=== PATIENT | female | born 1960 | race Hispanic/Latino ===

== ENCOUNTER → 2019-05-04 | Outpatient (CLI) | payer OTHER | END | disposition home or self-care (01) | LOC: RAH 13:29 | PROVIDERS: ATTEND Internal Medicine | DX: Z12.31 Encounter for screening mammogram for malignant neoplasm of breast (principal) | CPT/HCPCS: 77067 ==

== ENCOUNTER 2019-06-29 07:04 | Day surgery (SDC) | payer OTHER ==
[~2019-06-29] VITALS: Ht 162.6 cm; Wt 117.9 kg
[~2019-06-29 07:04] MED LIST: ASPI-556 PO; CALC-268 PO; CLOP75TA14 PO; DAPA5TAB PO; GLIP-162 PO; LOSA1TAB42 PO; METF-891 PO; OMEP40CA13 PO; SODIUM CHLORIDE 0.9% 1000ML 1,000 ML IV ONE
[2019-06-29 08:10] VITALS: BP 143/65
[2019-06-29] MEDS ORDERED: ATOR40TA71 PO (08:49)
[2019-06-29] MEDS ORDERED: PROPOFOL 10 MG/ML 20ML VIAL IV ONE (09:11)
[2019-06-29 09:53] VITALS: BP 103/49
[2019-06-29 09:56] VITALS: BP 106/89
[2019-06-29 10:00] VITALS: BP 110/68
[2019-06-29 10:07] VITALS: BP 125/66
[2019-06-29 10:12] VITALS: BP 130/77
== END 2019-06-29 10:23 | disposition home or self-care (01) ==
LOC: ENDO 07:04 → DAH 07:04 → ENDO 10:23
PROVIDERS: ATTEND Internal Medicine Gastroenterology
DX: K59.04 Chronic idiopathic constipation (principal); D12.3 Benign neoplasm of transverse colon; K62.1 Rectal polyp; K29.50 Unspecified chronic gastritis without bleeding; K31.7 Polyp of stomach and duodenum; K29.80 Duodenitis without bleeding; R10.12 Left upper quadrant pain; E78.5 Hyperlipidemia, unspecified; I10 Essential (primary) hypertension; E11.9 Type 2 diabetes mellitus without complications; E66.9 Obesity, unspecified; Z86.73 Personal history of transient ischemic attack (TIA), and cerebral infarction without residual deficits; Z90.49 Acquired absence of other specified parts of digestive tract; Z79.82 Long term (current) use of aspirin; Z79.84 Long term (current) use of oral hypoglycemic drugs; Z86.010 Personal history of colon polyps; Z79.899 Other long term (current) drug therapy; Z98.890 Other specified postprocedural states; Z82.49 Family history of ischemic heart disease and other diseases of the circulatory system; Z83.3 Family history of diabetes mellitus
CPT/HCPCS: 43239; 43251; 45380; 45385; 82948 ×2; A4215; A4221; A4222; A4223; A4606; A4620; A4663; J2704; J7030

== ENCOUNTER → 2021-07-14 | Outpatient (CLI) | payer OTHER ==
[~2021-07-14] MED LIST changes: +ATOR40TA71 PO; -OMEP40CA13 PO; +OMEP40CA21 PO; -SODIUM CHLORIDE 0.9% 1000ML 1,000 ML IV ONE
== END | disposition home or self-care (01) ==
LOC: RAH 10:14
PROVIDERS: ATTEND Internal Medicine Gastroenterology
DX: R10.13 Epigastric pain (principal)
CPT/HCPCS: 78264; A9541

== ENCOUNTER 2021-07-23 13:33 | Emergency (ER) | payer OTHER ==
[~2021-07-23] VITALS: Ht 162.6 cm; Wt 117.9 kg
[2021-07-23 13:35] VITALS: BP 142/83
[2021-07-23] MEDS ORDERED: IOHEXOL 350 MG/ML 100ML INFUS..BTL IV ONE (13:47)
[2021-07-23] MEDS ORDERED: MORPHINE 4 MG SYG IVP ONE (14:00)
[2021-07-23] MEDS ORDERED: 0.9%NACL 1000ML 1,000 ML IV ONE (14:00)
[2021-07-23] MEDS ORDERED: ONDANSETRON 4MG INJ IVP ONE (14:00)
[2021-07-23] MEDS ORDERED: KETOROLAC 15MG/ML VIAL (15MG/ML) IV ONE (14:00)
[2021-07-23 14:08] LABS: BASOPHILS % (AUTO) 0.3 % (0.0-5.0); EOSINOPHILS % (AUTO) 0.5 % (0.0-8.0); HEMATOCRIT 35.8 % (36-48); LYMPHOCYTES % (AUTO) 15.8 % (21.0-51.0); MEAN CORPUSCULAR HEMOGLOBIN 30.6 pg (27.0-33.0); MEAN CORPUSCULAR HGB CONC 31.8 g/dL (32.0-36.0); MEAN CORPUSCULAR VOLUME 96.2 fL (79-99); MONOCYTES % (AUTO) 4.4 % (3.0-13.0); NEUTROPHILS % (AUTO) 78.3 % (40.0-77.0); PLATELET COUNT (AUTO) 237 K/uL (130-400); RED BLOOD CELL COUNT(AUTO) 3.72 MIL/uL (4.00-5.50); WHITE BLOOD COUNT (AUTO) 12.7 K/uL (4.8-10.8)
[2021-07-23 14:18] LABS: CREATININE 0.7 mg/dL (0.5-1.5); POTASSIUM 3.5 mmol/L (3.5-5.1)
[2021-07-23 14:28] LABS: ALBUMIN 3.3 g/dL (3.5-5.0); BILIRUBIN,TOTAL 0.3 mg/dL (0.2-1.0); TOTAL PROTEIN, SERUM 6.5 g/dL (6.0-8.3)
[2021-07-23] MEDS ORDERED: METH-662 PO (16:09)
== END 2021-07-23 17:22 | disposition home or self-care (01) ==
LOC: EDH 13:33
DX: S40.012A Contusion of left shoulder, initial encounter (principal); S20.212A Contusion of left front wall of thorax, initial encounter; S60.222A Contusion of left hand, initial encounter; Z79.02 Long term (current) use of antithrombotics/antiplatelets; Z79.1 Long term (current) use of non-steroidal anti-inflammatories (NSAID); Z79.82 Long term (current) use of aspirin; Z79.84 Long term (current) use of oral hypoglycemic drugs; Z79.899 Other long term (current) drug therapy; V49.49XA Driver injured in collision with other motor vehicles in traffic accident, initial encounter; Y93.89 Activity, other specified; Y92.89 Other specified places as the place of occurrence of the external cause; Y99.8 Other external cause status
CPT/HCPCS: 36415; 70450; 71260; 72125; 73030; 73130; 74177; 80053; 84484; 85025; 93005; 99285; Q9967; J1885; J2270; J2405; J7030

== ENCOUNTER → 2022-03-05 | Outpatient (CLI) | payer OTHER ==
[~2022-03-05] MED LIST changes: +CLOP-31 PO; -CLOP75TA14 PO; +METH-662 PO
== END | disposition home or self-care (01) ==
LOC: RAH 10:53
PROVIDERS: ATTEND Internal Medicine
DX: Z12.31 Encounter for screening mammogram for malignant neoplasm of breast (principal)
CPT/HCPCS: 77067

== ENCOUNTER → 2022-07-27 | Outpatient (CLI) | payer OTHER ==
[~2022-07-27] MED LIST changes: +GADOTERATE MEGLUMINE 10 MMOL/20 ML VIAL IV ONE
== END | disposition home or self-care (01) ==
LOC: CANSCHCLI → RAH 08:22
PROVIDERS: ATTEND Internal Medicine Gastroenterology
DX: R93.3 Abnormal findings on diagnostic imaging of other parts of digestive tract (principal); R16.0 Hepatomegaly, not elsewhere classified; N28.1 Cyst of kidney, acquired; Z90.49 Acquired absence of other specified parts of digestive tract
CPT/HCPCS: 74183; A9575

== ENCOUNTER → 2022-08-10 | Outpatient (CLI) | payer OTHER ==
[~2022-08-10] MED LIST changes: -GADOTERATE MEGLUMINE 10 MMOL/20 ML VIAL IV ONE
== END | disposition home or self-care (01) ==
LOC: SHCH 10:12
PROVIDERS: ATTEND Internal Medicine Cardiovascular Disease
DX: G45.9 Transient cerebral ischemic attack, unspecified (principal); I48.0 Paroxysmal atrial fibrillation
CPT/HCPCS: 93880

== ENCOUNTER → 2023-03-15 | Outpatient (CLI) | payer OTHER | END | disposition home or self-care (01) | LOC: RAH 09:52 | PROVIDERS: ATTEND Internal Medicine | DX: Z12.31 Encounter for screening mammogram for malignant neoplasm of breast (principal) | CPT/HCPCS: 77067 ==

== ENCOUNTER 2024-10-08 17:16 | Emergency (ER) | payer OTHER ==
[~2024-10-08] VITALS: Ht 162.6 cm; Wt 103.0 kg
[~2024-10-08 17:16] MED LIST changes: -GLIP-162 PO; +GLIP-300 PO; +METF-1151 PO; -METF-891 PO
--- NOTE | 2024-10-08 17:57 | ERN ---
ED Note History of Present Illness Stated Complaint: FRACTURED FIBULA Chief Complaint: Lower Extremity Pain/Injury Time Seen by MD: 17:43 Time Seen by Midlevel: 17:46 Dictation: Ms. Ramirez is a 64 year old female with history of heart disease, hypertension, hyperlipidemia, atrial fibrillation, chronic anticoagulation (on Eliquis), type II DM, and obesity who presented to the Emergency Department this evening for evaluation of leg pain. She states that approximately one month ago she was walking with some flat sandals which caused pronation. She states she had x-ray done that showed a fractured left fibula. She states she saw leasing property manager, Dr. Odom, who wrapped her foot and ankle and referred her to orthopedic surgeon. She states that she has an appointment with Dr. Wilmer Morfin on 10/17. She states the pain has worsened and is having difficulty walking. She denies fall/additional trauma. Allergies: Coded Allergies: No Known Drug Allergies (Unverified Allergy, Unknown, 06/07/19) codeine (Unverified Allergy, Unknown, 10/08/24) Home Meds Active Scripts Ketorolac Tromethamine (Toradol) 10 Mg Tab, 1 TAB PO Q6HPRN PRN for pain for 5 Days, #20 TAB 0 Refills Prov:DENNIS CARRILLO NP 10/08/24 Methocarbamol (Robaxin) 750 Mg Tab, 1-2 TAB PO TIDP PRN for MUSCLE SPASMS, #20 TAB 0 Refills Prov:CRESCENCIO TURPIN MD 07/23/21 Reported Medications Atorvastatin Calcium (Atorvastatin Calcium) 40 Mg Tablet, 40 MG PO DAILY, TAB 06/29/19 Calcium Carbonate/Vitamin D3 (Calcium 600 + Vit D Tablet) 1 Each Tablet, 1 EACH PO BID, TAB 06/07/19 Omeprazole (Omeprazole) 40 Mg Capsule.dr, 40 MG PO DAILY, CAP 06/07/19 Aspirin (Aspir 81) 81 Mg Tablet.dr, 81 MG PO PM, TAB 06/07/19 Clopidogrel Bisulfate (Plavix) 75 Mg Tablet, 75 MG PO PM, TAB 06/07/19 Losartan/Hydrochlorothiazide (Losartan-Hctz 100-12.5 mg Tab) 1 Each Tablet, 1 EACH PO DAILY, TAB 06/07/19 Glipizide (Glipizide ER) 5 Mg Tab.er.24, 5 MG PO BID 06/07/19 Dapagliflozin Propanediol (Farxiga) 5 Mg Tablet, 5 MG PO BID, TAB 06/07/19 Metformin HCl (Metformin HCl ER) 1,000 Mg Esfreoe12c, 1000 MG PO BID 06/07/19 Past Medical History Past Medical History: A-Fib, Diabetes-Type II, High Cholesterol, Heart Disease, Hypertension Surgical History: Cholecystectomy, PSYCH History: no pertinent psych hx Social History: Negative, Lives with family, Other History: Not Applicable RN Note Reviewed/Agreed w/PFSH: Yes Review of System Dictation REVIEW OF SYSTEMS: CONSTITUTIONAL: Patient denies fevers, chills, sweats and weight changes. EYES: Patient denies any visual symptoms. EARS, NOSE, AND THROAT: No difficulties with hearing. No symptoms of rhinitis or sore throat. CARDIOVASCULAR: Patient denies chest pains, palpitations, orthopnea and paroxysmal nocturnal dyspnea. Reports elevated blood pressure reading. RESPIRATORY: No dyspnea on exertion, no wheezing or cough. GI: No nausea, vomiting, diarrhea, constipation, abdominal pain, hematochezia or melena. : No urinary hesitancy or dribbling. No nocturia or urinary frequency. No abnormal urethral discharge. MUSCULOSKELETAL: Reports pain left lower leg. States she was diagnosed with a fracture of the left fibula one month ago. NEUROLOGIC: No chronic headaches, no seizures. Patient denies numbness, tingling or weakness. PSYCHIATRIC: Patient denies problems with mood disturbance. Reports anxiety. ENDOCRINE: No excessive urination or excessive thirst. DERMATOLOGIC: Patient denies any rashes or skin changes. Initial Vital Sign VS Vital Signs Date Time Temp Pulse Resp B/P (MAP) Pulse Ox O2 Delivery O2 Flow Rate FiO2 10/08/24 17:31 98.8 93 18 201/109 97 Room Air 0 10/08/24 18:45 21 Physical Exam Dictation Vital signs: Reviewed. Afebrile Constitutional: Crying. Head/Face: Normocephalic, atraumatic. Eyes: Periorbital areas with no swelling, redness, or edema. Lids and lashes are normal. Conjunctival injection is absent. Sclera anicteric. Pupils equal, round, reactive to light. ENT: Pinnas intact and no signs of trauma or erythema. Ear canals clear and no discharge. TMs no erythema. No nasal discharge or bleeding noted. Oropharynx with no exudate, redness, swelling, masses, exudates, or evidence of obstruction. Uvula midline. Mucous membranes moist. Neck: Trachea midline, no masses palpated, and no cervical lymphadenopathy. No swelling. Supple, full range of motion. Chest/Axilla: No tenderness, no crepitus, no paradoxical movement, no retractions. Cardiovascular: Regular rate, regular rhythm, no murmur, no gallops. Symmetric pulses. No peripheral edema. Respiratory: Respirations even and unlabored. Lung sounds clear; no wheezes, rales or rhonchi. Room air SpO2 98% Gastrointestinal: Obese. No distention is appreciated. Bowel sounds are normal. No mass or organomegaly . There is no tenderness. No rebound. No rigidity. No voluntary or involuntary guarding. No New's sign. Neurological: Normal speech, gross motor function intact, gross sensory function intact. No focal weakness/Paresthesia. Musculoskeletal/Extremities: All extremities have full range of motion. No deformity or crepitus left knee or left lower leg. Pain with weight-bearing left leg. She has good color, warmth, movement sensation to left toes. Cap refills brisk. Symmetric pulses. Integumentary: Intact. Skin is normal color, warm and dry. Cap refill less than 2 seconds. Results (Laboratory/Radiology) X-RAY Comment: PATIENT: DUNIA RAMIREZ MR#: [id number] : 1960 SEX: F AGE: 64 LOCATION: [facility] ORDER 45 STATUS: [facility] REPORT#: [id number] SERVICE 43 REASON: pain left tib/fib; fx fibula x 4 weeks ago ORDERING PHYSICIAN: DENNIS CARRILLO NP PROCEDURE: TIBFIB LT - TIBIA/FIBULA 2VWS LT LEFT TIBIA AND FIBULA RADIOGRAPHS - 2 VIEWS INDICATION: Pain COMPARISON: None. FINDINGS: AP and lateral views. No evidence for acute fracture or dislocation. No radiopaque foreign body noted. Chronic far distal left fibular shaft fracture deformity. Mild to moderate tricompartmental left knee osteoarthropathy. IMPRESSION: No evidence for fracture or dislocation. DICTATED BY: CARLEEN TODD MD DATE: 10/08/241854 ELECTRONICALLY SIGNED BY: CARLEEN TODD MD DATE: 10/08/241858 ED Course ED Course Orders Procedure Category Date Status Time Tibia/Fibula 2vws Lt RAD 10/08/24 Resulted 17:44 Hydrocodone/Apap PHA 10/08/24 Complete 5/325 ([place] 5/325mg) 18:00 Ketorolac 60mg/2ml PHA 10/08/24 Complete (Toradol 60mg/2ml) 18:00 Crutches W/Training CPOE 10/08/24 Transmitted (Er) 19:15 *Nursing CPOE 10/08/24 Transmitted Communication: 19:21 Current Medications Medications (Trade) Dose Ordered Sig/Ronny Route PRN Reason Start Time Stop Time Status Last Admin Dose Admin Acetaminophen/ Hydrocodone Bitart (NORco 5/325MG) 1 tab ONCE ONCE PO 10/08/24 18:00 10/08/24 18:01 DC 10/08/24 18:57 Ketorolac Tromethamine (toRADol 60MG/ 2ML) 30 mg ONCE ONCE IM 10/08/24 18:00 10/08/24 18:01 DC 10/08/24 18:57 Vital Signs Date Time Temp Pulse Resp B/P (MAP) Pulse Ox O2 Delivery O2 Flow Rate FiO2 10/08/24 18:45 98.1 73 18 156/81 99 Room Air* 0 21 10/08/24 17:31 98.8 93 18 201/109 97 Room Air 0 Initial blood pressure elevated 201/109 patient with pain/crying. An x-ray was obtained of the left tib-fib which was negative for fracture or dislocation. She received doses Hydrocodone and IM Toradol; pain decreased. Repeat BP 156/81. She continues to complain of pain with weight bearing so she was instructed on use of crutches. She can follow up with ortho on 10/17 as previously scheduled. Medical Decision Making MDM MDM: Differential diagnosis: fracture tibia/fibula, uncontrolled pain, contusion Rationale: Tests considered and ordered secondary to shared decision making include: x-ray Previous outside records reviewed: Old ER visits. Risk of complication and/or morbidity or mortality of patient management: None Medications-Per medication reconciliation Need for hospitalization: Patient does not meet criteria for hospitalization. Need for emergency major/minor surgery: No There are no social concerns with this patient. Prescription drug management: OTC Tylenol, Toradol Prescriptions will include symptomatic care Patient's prior external medical records from other ER visits were reviewed by me as indicated. Prior testing and results from previous visits were reviewed. Prior tests were taken into account with medical decision making and resource utilization, independent historian/historians were used to obtain complete medical history. I independently interpreted the test that were performed, results were reviewed by me and considered findings on radiology if ordered. Medical management and examination interpretation discussions were had by me with other qualified healthcare professionals as indicated for the patient's care. DX & DISP Disposition: Discharge Departure Impression: Primary Impression: Lower extremity pain, left Additional Impression: Hypertension Condition: Stable Scripts Ketorolac Tromethamine (Toradol) 10 Mg Tab 1 TAB PO Q6HPRN PRN for pain for 5 Days, #20 TAB 0 Refills Prov: DENNIS CARRILLO NP 10/08/24 Additional Instructions: Rest; weight bearing as tolerated. Use crutches. Follow up with orthopedic surgeon as previously scheduled. Take OTC Tylenol as needed for discomfort. May take Ketorolac every 6 hours as needed for pain. Keep a log of blood pressure readings and follow up with your primary care provider this week. Continue to take all blood pressure medications as ordered. Return to the Emergency Department for worsening of symptoms or concerns. Referrals: ANGÉLICA MCKEON MD (PCP) WILMER MORFIN MD Time of Disposition: 19:18 DENNIS CARRILLO NP Oct 08, 2024 17:56
[2024-10-08] MEDS: ketOROlac 60 MG VIAL (30MG/ML) IM ONE (18:57)
[2024-10-08] MEDS: HYDROcodone/APAP 5/325 1 TAB TABLET PO ONE (18:57)
--- NOTE | 2024-10-08 18:59 | HMCIMG ---
LEFT TIBIA AND FIBULA RADIOGRAPHS - 2 VIEWS INDICATION: Pain COMPARISON: None. FINDINGS: AP and lateral views. No evidence for acute fracture or dislocation. No radiopaque foreign body noted. Chronic far distal left fibular shaft fracture deformity. Mild to moderate tricompartmental left knee osteoarthropathy. IMPRESSION: No evidence for fracture or dislocation.
[2024-10-08] MEDS ORDERED: KETO10 PO (19:15)
--- NOTE | 2024-10-08 19:16 | NUR ---
PT CARE ASSUMED AT THIS TIME
[2024-10-08 19:46] VITALS: BP 161/89; PULSE 72; RESP 17; TEMP 97.7; O2SAT 99
--- NOTE | 2024-10-08 19:59 | NUR ---
ED ALTERNATIVE MEDICINE PRACTITIONER DENNIS AWARE OF UPDATED BP
--- NOTE | 2024-10-08 20:03 | NUR ---
CRUTCHES GIVEN TO PT AT THIS TIME. ED RN EDUCATED PT ON HOW TO PROPERLY USE CRUTCHES. PT VERBILIZED UNDERSTADING. PT DEMOSTRATED PROPER USE OF CRUTCHES UPON DISCHARGE.
--- NOTE | 2024-10-08 20:12 | NUR ---
AMBULATION ASSESSMENT UPON DISCHARGE PT AMBULATED USING CRUTCHES WITH STEADY GAIT. NO SIGNS OF IMBALANCE NOTED.
== END 2024-10-08 20:16 | disposition home or self-care (01) ==
LOC: EDH 17:16
DX: M79.605 Pain in left leg (principal); I11.9 Hypertensive heart disease without heart failure; E11.9 Type 2 diabetes mellitus without complications; E78.00 Pure hypercholesterolemia, unspecified; I48.91 Unspecified atrial fibrillation; Z79.84 Long term (current) use of oral hypoglycemic drugs; Z79.899 Other long term (current) drug therapy; Z88.5 Allergy status to narcotic agent; Z90.49 Acquired absence of other specified parts of digestive tract; Z98.890 Other specified postprocedural states
CPT/HCPCS: 99284; 73590; 96372; J1885